=== PATIENT | female | born 1990 | race Caucasian/White ===

== ENCOUNTER 2022-07-15 13:43 | Inpatient (IN) | payer OTHER ==
[2022-07-15 14:35] VITALS: BMI 21.1
[2022-07-15] MEDS ORDERED: DICYCLOMINE HCL 10 MG CAPSULE PO PRN (14:51)
[2022-07-15] MEDS ORDERED: LOPERAMIDE HCL 2 MG CAPSULE PO PRN (14:51)
[2022-07-15] MEDS ORDERED: ONDANSETRON *ODT* 4 MG TABLET SL PRN (14:51)
[2022-07-15] MEDS ORDERED: BENZOCAINE/MENTHOL (CHLORASEPTIC ) LOZENGE MM PRN (14:51)
[2022-07-15] MEDS ORDERED: NICOTINE 10 MG CARTRIDGE (INHALER) IH PRN (14:51)
[2022-07-15] MEDS ORDERED: MAGNESIUM HYDROX 2400MG/30ML ORAL SUSPENSION 30 ML CUP PO PRN (14:51)
[2022-07-15] MEDS ORDERED: MAGNESIUM CITRATE 300 ML BOTTLE PO PRN (14:51)
[2022-07-15] MEDS ORDERED: MAG HYDROX/AL HYDROX/SIMETH 30 ML UNIT-DOSE CUP PO PRN (14:51)
[2022-07-15] MEDS ORDERED: IBUPROFEN 400 MG TABLET (FP) PO PRN (14:51)
[2022-07-15] MEDS ORDERED: ACETAMINOPHEN 325 MG TABLET (FP) PO PRN ×2 (14:51)
[2022-07-15] MEDS ORDERED: cloNIDine HCL 0.1 MG TABLET PO PRN (14:51)
[2022-07-15] MEDS ORDERED: BISMUTH SUBSALICYLATE 524 MG/30 ML PO PRN (14:51)
[2022-07-15] MEDS ORDERED: IBUPROFEN 600 MG TABLET (FP) PO PRN (14:51)
[2022-07-15] MEDS ORDERED: methaDONE HCL 10 MG TABLET (FOR DETOX USE ONLY) PO ONE (15:15)
[2022-07-15] MEDS ORDERED: methaDONE HCL 10 MG TABLET (FOR DETOX USE ONLY) ONE (16:10)
[2022-07-15] MEDS: METHOCARBAMOL 500 MG TABLET PO PRN (17:08)
[2022-07-15] MEDS: PHENYTOIN NA EXTENDED 100 MG CAPSULE (FP) PO SCH (17:09)
[2022-07-15] MEDS: PRENATAL VITAMINS W/ FOLIC ACID TABLET (FP) PO SCH (17:09)
[2022-07-15] MEDS: hydrOXYzine PAMOATE 25 MG CAPSULE (FP) PO SCH ×2 (17:10→22:50)
[2022-07-15] MEDS: INSULIN SLIDING SCALE (NOVOLOG) 1 VIAL SQ SCH (18:00)
[2022-07-15] MEDS: MELATONIN 5 MG TABLETS PO SCH (22:48)
[2022-07-15] MEDS: THIAMINE HCL 100 MG TABLET (FP) PO SCH (22:49)
[2022-07-15] MEDS: diazePAM 5 MG TABLET PO PRN (22:49)
[2022-07-16] MEDS: hydrOXYzine PAMOATE 25 MG CAPSULE (FP) PO SCH ×5 (05:43→22:44)
[2022-07-16] MEDS: INSULIN SLIDING SCALE (NOVOLOG) 1 VIAL SQ SCH ×3 (07:52→17:00)
[2022-07-16] MEDS: PRENATAL VITAMINS W/ FOLIC ACID TABLET (FP) PO SCH (10:37)
[2022-07-16] MEDS: PHENYTOIN NA EXTENDED 100 MG CAPSULE (FP) PO SCH (10:37)
[2022-07-16] MEDS: diazePAM 5 MG TABLET PO PRN ×3 (10:40→22:43)
[2022-07-16 11:42] LABS: HEMATOCRIT 33.7 % (32.4-45.2); HEMOGLOBIN 10.9 GM/dL (10.7-15.3); MCH 25.1 pg (25.7-33.7); MCHC 32.3 g/dl (32.0-36.0); MEAN CELL VOLUME 77.7 fl (80-96); MEAN PLT VOLUME 7.3 fl (7.5-11.1); PLATELET COUNT 307 10^3/uL (134-434); RBC 4.34 M/mm3 (3.60-5.2); RDW 16.1 % (11.6-15.6)
[2022-07-16 11:57] LABS: CALCIUM 8.7 mg/dL (8.5-10.1)
[2022-07-16 11:58] LABS: ALBUMIN 2.8 g/dl (3.4-5.0); BLOOD UREA NITROGEN 14.3 mg/dL (7-18); CREATININE 0.8 mg/dL (0.55-1.3)
[2022-07-16 12:01] LABS: BILIRUBIN,TOTAL 0.4 mg/dL (0.2-1); TOT PROT 6.2 g/dl (6.4-8.2)
[2022-07-16] MEDS: METHOCARBAMOL 500 MG TABLET PO PRN (17:53)
[2022-07-16] MEDS: THIAMINE HCL 100 MG TABLET (FP) PO SCH (22:42)
[2022-07-16] MEDS: MELATONIN 5 MG TABLETS PO SCH (22:42)
[2022-07-17] MEDS: hydrOXYzine PAMOATE 25 MG CAPSULE (FP) PO SCH ×5 (05:19→22:43)
[2022-07-17] MEDS: INSULIN SLIDING SCALE (NOVOLOG) 1 VIAL SQ SCH ×4 (06:06→17:49)
[2022-07-17] MEDS ORDERED: methaDONE HCL 10 MG TABLET (FOR DETOX USE ONLY) PO ONE (10:00)
[2022-07-17] MEDS: PHENYTOIN NA EXTENDED 100 MG CAPSULE (FP) PO SCH (10:30)
[2022-07-17] MEDS: PRENATAL VITAMINS W/ FOLIC ACID TABLET (FP) PO SCH (10:30)
[2022-07-17] MEDS: THIAMINE HCL 100 MG TABLET (FP) PO SCH (22:43)
[2022-07-17] MEDS: MELATONIN 5 MG TABLETS PO SCH (22:43)
[2022-07-18] MEDS: hydrOXYzine PAMOATE 25 MG CAPSULE (FP) PO SCH ×5 (05:43→22:29)
[2022-07-18] MEDS: INSULIN SLIDING SCALE (NOVOLOG) 1 VIAL SQ SCH ×3 (06:37→18:11)
[2022-07-18] MEDS: PRENATAL VITAMINS W/ FOLIC ACID TABLET (FP) PO SCH (10:22)
[2022-07-18] MEDS: PHENYTOIN NA EXTENDED 100 MG CAPSULE (FP) PO SCH (10:22)
[2022-07-18] MEDS: METHOCARBAMOL 500 MG TABLET PO PRN ×2 (10:22→20:00)
[2022-07-18] MEDS: diazePAM 5 MG TABLET PO PRN ×2 (10:22→20:00)
[2022-07-18] MEDS: THIAMINE HCL 100 MG TABLET (FP) PO SCH (22:29)
[2022-07-18] MEDS: MELATONIN 5 MG TABLETS PO SCH (22:30)
[2022-07-19] MEDS: hydrOXYzine PAMOATE 25 MG CAPSULE (FP) PO SCH ×3 (05:59→13:36)
[2022-07-19 06:49] VITALS: RESP 18
[2022-07-19] MEDS: INSULIN SLIDING SCALE (NOVOLOG) 1 VIAL SQ SCH ×2 (06:57→12:36)
[2022-07-19] MEDS ORDERED: methaDONE HCL 10 MG TABLET (FOR DETOX USE ONLY) PO ONE (10:00)
[2022-07-19] MEDS: PRENATAL VITAMINS W/ FOLIC ACID TABLET (FP) PO SCH (10:22)
[2022-07-19] MEDS: PHENYTOIN NA EXTENDED 100 MG CAPSULE (FP) PO SCH (10:22)
[2022-07-19] MEDS: METHOCARBAMOL 500 MG TABLET PO PRN (11:13)
[2022-07-19] MEDS ORDERED: diazePAM 5 MG TABLET PO ONE (11:13)
[2022-07-19 13:21] VITALS: BP 107/60; PULSE 115; TEMP 97.1
== END 2022-07-19 14:43 | disposition home or self-care (01) | DRG 773 ==
LOC: YASAS 13:43 → Y6N 16:32
PROVIDERS: ADMIT Allergy & Immunology; ATTEND Surgery
PROC: HZ2ZZZZ Detoxification Services for Substance Abuse Treatment (ICD-10-PCS; principal; 2022-07-15)
DX: F11.23 Opioid dependence with withdrawal (principal); G40.909 Epilepsy, unspecified, not intractable, without status epilepticus; Z87.891 Personal history of nicotine dependence; Z88.0 Allergy status to penicillin
CPT/HCPCS: 36415; 80053; 80185; 81025; 82962; 85027; 86593; 86780; C9803-CS; U0003; U0005